=== PATIENT | male | born 1960 | race Two or more races ===

== ENCOUNTER 2020-08-12 00:55 | Emergency (ER) | payer SELFPAY ==
[~2020-08-12] VITALS: Ht 162.6 cm; Wt 77.8 kg
[2020-08-12 00:55] VITALS: BP 138/84
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
[2020-08-12] MEDS ORDERED: ASPIRIN 325 MG TABLET ONE (02:10)
[2020-08-12] MEDS ORDERED: ASPIRIN 325 MG TABLET PO ONE (02:15)
== END 2020-08-12 02:17 | disposition home or self-care (01) ==
LOC: ER 00:55
DX: F43.21 Adjustment disorder with depressed mood (principal); M79.642 Pain in left hand; F17.210 Nicotine dependence, cigarettes, uncomplicated; F11.10 Opioid abuse, uncomplicated
CPT/HCPCS: 99282